=== PATIENT | male | born 1950 | race Caucasian/White ===

== ENCOUNTER 2016-08-20 09:49 | Day surgery (SDC) | payer MEDICARE, OTHER ==
[~2016-08-20 09:49] MED LIST: BUPIVACAINE HCL 0.75% INJ/PF (7.5 MG/1 ML) 10 ML SDV OS PRN; LIDOCAINE 4% INJ/PF (40 MG/ML) 5 ML AMPUL OS PRN
[2016-08-20] MEDS: CYCLOPENTOLATE 0.2%/PHENYLEPHRINE 1% OPH SOLN 2 ML OS PRN ×3 (10:14→10:35)
[2016-08-20] MEDS: TROPICAMIDE 1% OPH SOLN 3 ML OS PRN ×3 (10:15→10:36)
[2016-08-20] MEDS: TETRACAINE HCL 0.5% OPH SOLN 0.6 ML DROPERETTE OS PRN ×2 (10:16→10:36)
[2016-08-20] MEDS: BESIFLOXACIN HCL 0.6% OPH SUSP 5 ML BOTTLE OS PRN ×4 (10:16→11:10)
[2016-08-20] MEDS ORDERED: MIDAZOLAM 2 MG/2 ML INJ ONE (10:19)
[2016-08-20] MEDS ORDERED: FENTANYL CITRATE INJ/PF 100 MCG/2 ML AMPUL ONE (10:19)
[2016-08-20] MEDS ORDERED: EPINEPHRINE INJ/PF 1 MG/1 ML AMPULE ONE (10:23)
[2016-08-20] MEDS ORDERED: CHONDR SU A NA/HYALUR INTRAOC KIT (SURGICARE) ONE (10:23)
[2016-08-20] MEDS ORDERED: PHENYLEPHRINE/KETOROLAC 1%-0.3% 4 ML VIAL ONE (10:24)
[2016-08-20] MEDS ORDERED: LIDOCAINE 1% INJ-PF (10 MG/ML) 30 ML SDV ONE (10:24)
--- NOTE | 2016-08-20 11:33 | [facility] OPERATIVE REPORT E ---
[facility] Operative Report NAME: SHONDA NAVA AGE: 66Y DATE OF SURGERY: 08/20/2016 ROOM: PREOPERATIVE DIAGNOSES: 1. Cataract, left eye. 2. Astigmatism, left eye. POSTOPERATIVE DIAGNOSES: 1. Cataract, left eye. 2. Astigmatism, left eye. PROCEDURE PERFORMED: Phacoemulsification with toric intraocular lens implant, left eye. SURGEON: BREANNA GUTHRIE M.D. ANESTHESIA: Topical with MAC. INDICATIONS FOR SURGERY: Difficulty reading road signs and driving at night. Best corrected visual acuity 20/60. DESCRIPTION OF PROCEDURE: The patient was brought to the Operating Room and placed on the operative table. Patient was placed in the seated position and the 0, 270, and 180 degree axis of the eye was marked. Following tetracaine drops, topical anesthesia was administered. This consisted of instrument wipe pledgets soaked in a solution of 4% Xylocaine mixed with 0.75% Marcaine in a 1:2 ratio. A 2 x 1 cm pledget was placed in the superior fornix. A 1 x 1 cm pledget was placed in the inferior fornix. The eye was patched shut for 5 minutes. The patch was removed. The eye was sterilely prepped and draped in the usual manner. Lid speculum was placed in the eye. The pledgets were removed and 4-0 black silk sutures were placed around the superior and the inferior rectus muscles to be used as traction. A conjunctival peritomy was made at the 10 o'clock position. Hemostasis was obtained with bipolar cautery. A posterior limbal groove was created using a crescent knife and dissected anteriorly towards the cornea. A sharp point blade was used to create a paracentesis site at the 2 o'clock position. A 2.4-mm keratome was used to enter the anterior chamber through the groove. Viscoelastic was injected into the anterior chamber. An anterior capsulotomy was performed using Utrata forceps in a capsulorrhexis fashion. Hydrodissection and hydrodelineation were performed. Phacoemulsification was performed in bhaioo-fol-oekukka technique. A total of 22 seconds phaco time was used. Following this, the I/A unit was used to remove residual cortex. Viscoelastic was injected into the capsular bag. The 85-degree axis was marked on the eye using the previously marked sites as reference. Intraocular lens model [id number], serial number [id number], was placed in the capsular bag. The I/A unit was used to remove residual viscoelastic. The lens was placed at the final position of 85 degrees. The wound was seen to be watertight under high and low pressure, and no sutures were placed. The intraocular lens was well centered. The pressure was adjusted in the eye to normal pressure. The 4-0 black silk sutures and lid speculum were removed. The eye was shielded after Besivance drops were placed. The patient tolerated the procedure well and was sent to the Recovery Room in good condition. DICTATING PHYSICIAN: BREANNA GUTHRIE M.D. [id number] PHY#: [id number] ID: [id number] JOB#: [id number] ACCT: [id number] cc:BREANNA GUTHRIE M.D. > MTDD
--- NOTE | 2016-08-20 11:38 | [facility] DISCHARGE SUMMARY E ---
[facility] Discharge Summary NAME: SHONDA NAVA AGE: 66Y ADMITTED: 08/20/2016 DISCHARGED: HOSPITAL COURSE: The patient is a 66-year-old gentleman who underwent uneventful cataract extraction with toric intraocular lens implant, left eye, on 08/20/2016. He will be discharged to home. He was instructed to resume preoperative medications, to take Tylenol as needed for discomfort, to keep his eye shielded, to use Besivance and Durezol at 3:00 p.m. and 8:00 p.m., and to follow up in my office in 1 day. DICTATING PHYSICIAN: BREANNA GUTHRIE M.D. [id number] PHY#: [id number] ID: [id number] JOB#: [id number] ACCT: [id number] cc:BREANNA GUTHRIE M.D. >
== END 2016-08-20 11:54 | disposition home or self-care (01) ==
LOC: SC 09:49
PROVIDERS: ATTEND Ophthalmology
PROC: 08RK3JZ Replacement of Left Lens with Synthetic Substitute, Percutaneous Approach (ICD-10-PCS; principal; 2016-08-20 11:00)
DX: H25.13 Age-related nuclear cataract, bilateral (principal); H57.03 Miosis; H04.123 Dry eye syndrome of bilateral lacrimal glands; H53.021 Refractive amblyopia, right eye; H01.002 Unspecified blepharitis right lower eyelid; H01.005 Unspecified blepharitis left lower eyelid; H31.093 Other chorioretinal scars, bilateral; I10 Essential (primary) hypertension; E78.00 Pure hypercholesterolemia, unspecified; I25.2 Old myocardial infarction; Z87.891 Personal history of nicotine dependence; Z88.2 Allergy status to sulfonamides; Z79.82 Long term (current) use of aspirin; Z79.899 Other long term (current) drug therapy; K21.9 Gastro-esophageal reflux disease without esophagitis
CPT/HCPCS: 66984; V2787; J2250; J3490 ×5; J0171; C9447; 142; J3010

== ENCOUNTER 2016-09-17 10:07 | Day surgery (SDC) | payer MEDICARE, OTHER ==
[~2016-09-17 10:07] MED LIST changes: -BUPIVACAINE HCL 0.75% INJ/PF (7.5 MG/1 ML) 10 ML SDV OS PRN; +KETOROLAC TROMETHAMINE 0.45% 4 DROP/0.4 ML DROPERETTE OD PRN; -LIDOCAINE 4% INJ/PF (40 MG/ML) 5 ML AMPUL OS PRN
[2016-09-17] MEDS ORDERED: PHENYLEPHRINE/KETOROLAC 1%-0.3% 4 ML VIAL ONE (10:15)
[2016-09-17] MEDS: BESIFLOXACIN HCL 0.6% OPH SUSP 5 ML BOTTLE OD PRN ×4 (10:39→12:16)
[2016-09-17] MEDS: CYCLOPENTOLATE 0.2%/PHENYLEPHRINE 1% OPH SOLN 2 ML OD PRN ×3 (10:39→10:59)
[2016-09-17] MEDS: TROPICAMIDE 1% OPH SOLN 3 ML OD PRN ×3 (10:39→10:59)
[2016-09-17] MEDS: TETRACAINE HCL 0.5% OPH SOLN 0.6 ML DROPERETTE OD PRN ×2 (10:40→11:00)
[2016-09-17] MEDS ORDERED: MIDAZOLAM 2 MG/2 ML INJ ONE (11:11)
[2016-09-17] MEDS ORDERED: FENTANYL CITRATE INJ/PF 100 MCG/2 ML AMPUL ONE (11:12)
[2016-09-17] MEDS: LIDOCAINE 4% INJ/PF (40 MG/ML) 5 ML AMPUL OD PRN ×2 (11:44)
[2016-09-17] MEDS: BUPIVACAINE HCL 0.75% INJ/PF (7.5 MG/1 ML) 10 ML SDV OD PRN ×2 (11:44)
[2016-09-17] MEDS: EPINEPHRINE INJ/PF 1 MG/1 ML AMPULE ONE ×2 (11:54)
[2016-09-17] MEDS: CHONDR SU A NA/HYALUR INTRAOC KIT (SURGICARE) ONE ×2 (12:02)
--- NOTE | 2016-09-17 13:48 | [facility] OPERATIVE REPORT E ---
[facility] Operative Report NAME: David Burdick AGE: 70Y DATE OF SURGERY: 09/17/2016 ROOM: PREOPERATIVE DIAGNOSIS: Cataract, right eye. POSTOPERATIVE DIAGNOSIS: Cataract, right eye. PROCEDURE PERFORMED: Phacoemulsification with posterior chamber intraocular lens, right eye. SURGEON: BREANNA GUTHRIE M.D. ANESTHESIA: Topical with MAC. INDICATIONS FOR SURGERY: Anisometropia after cataract surgery on the left eye, difficulty reading small print and road signs. Best corrected visual acuity 20/100. DESCRIPTION OF PROCEDURE: The patient was brought to the Operating Room and placed on the operative table. Following tetracaine drops, topical anesthesia was administered. This consisted of instrument wipe pledgets soaked in a solution of 4% Xylocaine mixed with 0.75% Marcaine in a 1:2 ratio. A 2 x 1 cm pledget was placed in the superior fornix. A 1 x 1 cm pledget was placed in the inferior fornix. The eye was patched shut for 5 minutes. The patch was removed. The eye was sterilely prepped and draped in the usual manner. Lid speculum was placed in the eye. The pledgets were removed. 4-0 black silk sutures were placed around the superior and the inferior rectus muscles to be used as traction. A conjunctival peritomy was made at the 10 o'clock position. Hemostasis was obtained with bipolar cautery. A posterior limbal groove was created using a crescent knife and dissected anteriorly towards the cornea. A sharp point blade was used to create a paracentesis site at the 2 o'clock position. A 2.4 mm keratome was used to enter the anterior chamber through the groove. Viscoelastic was injected into the anterior chamber. An anterior capsulotomy was performed using Utrata forceps in a capsulorrhexis fashion. Hydrodissection and hydrodelineation were performed. Phacoemulsification was performed in alnswn-ofr-ncqrpou technique. A total of 51 seconds phaco time was used. Following this, the I/A unit was used to remove residual cortex. Viscoelastic was injected into the capsular bag. Intraocular lens model [id number], 30.0 diopters, serial number [id number] was placed in the capsular bag. The I/A unit was used to remove residual viscoelastic. The wound was seen to be watertight under high and low pressure, and no sutures were placed. The intraocular lens was well centered. The pressure was adjusted in the eye to normal pressure. The 4-0 black silk sutures and lid speculum were removed. The eye was shielded after Besivance drops were placed. The patient tolerated the procedure well and was sent to the Recovery Room in good condition. Gonioscopy was performed at the end of the surgery. DICTATING PHYSICIAN: BREANNA GUTHRIE M.D. [id number] PHY#: [id number] ID: [id number] JOB#: [id number] ACCT: [id number] cc:BREANNA GUTHRIE M.D. > MTDD
--- NOTE | 2016-09-17 13:50 | [facility] DISCHARGE SUMMARY E ---
[facility] Discharge Summary NAME: David Burdick AGE: 70Y ADMITTED: 09/17/2016 DISCHARGED: 09/17/2016 HOSPITAL COURSE: The patient is a 66-year-old gentleman who underwent uneventful cataract extraction with intraocular lens implant, right eye, on 09/17/2016. He will be discharged to home. He is instructed to resume preoperative medications, take Tylenol as needed for discomfort, to keep his eye shielded, to use Besivance and Durezol at 3 p.m. and 8 p.m., and to follow up in my office in 1 day. DICTATING PHYSICIAN: BREANNA GUTHRIE M.D. [id number] PHY#: [id number] ID: [id number] JOB#: [id number] ACCT: [id number] cc:BREANNA GUTHRIE M.D. > MTDD
== END 2016-09-17 13:02 | disposition home or self-care (01) ==
LOC: SC 10:07
PROVIDERS: ATTEND Ophthalmology
PROC: 08RJ3JZ Replacement of Right Lens with Synthetic Substitute, Percutaneous Approach (ICD-10-PCS; principal; 2016-09-17 11:30)
DX: H25.11 Age-related nuclear cataract, right eye (principal); H57.03 Miosis; Z96.1 Presence of intraocular lens; I10 Essential (primary) hypertension; K21.9 Gastro-esophageal reflux disease without esophagitis; Z79.899 Other long term (current) drug therapy; Z88.2 Allergy status to sulfonamides; Z88.6 Allergy status to analgesic agent; Z79.82 Long term (current) use of aspirin; Z87.891 Personal history of nicotine dependence
CPT/HCPCS: 66984; V2632; J2250; J3490 ×3; J0171; J3010; A9270; C9447; 142

== ENCOUNTER 2017-10-02 08:17 | Day surgery (SDC) | payer MEDICARE, OTHER ==
[2017-10-02] MEDS ORDERED: ONDANSETRON HCL INJ/PF 4 MG/2 ML SDV ONE (08:41)
[2017-10-02] MEDS ORDERED: GLYCOPYRROLATE INJ 0.4 MG/2 ML VIAL ONE (08:41)
[2017-10-02] MEDS ORDERED: NALOXONE HCL INJ/PF 0.4 MG/1 ML SDV ONE (08:41)
[2017-10-02] MEDS ORDERED: EPINEPHRINE INJ 1 MG/10 ML DISP.SYRIN ONE (08:42)
[2017-10-02] MEDS ORDERED: GLUCAGON,HUMAN RECOMB 1 MG INJ ONE (08:42)
[2017-10-02] MEDS ORDERED: MIDAZOLAM 2 MG/2 ML INJ ONE (08:42)
[2017-10-02] MEDS ORDERED: FLUMAZENIL INJ 0.5 MG/5 ML VIAL ONE (08:42)
--- NOTE | 2017-10-02 09:26 | EKG REPORT ---
SEVERITY:- ABNORMAL ECG - SINUS RHYTHM MULTIPLE VENTRICULAR PREMATURE COMPLEXES LOW VOLTAGE IN FRONTAL LEADS BORDERLINE R WAVE PROGRESSION, ANTERIOR LEADS : Confirmed by: Jose Vargas 02-Oct-2017 09:26:00
[2017-10-02] MEDS: MIDAZOLAM 2 MG/2 ML INJ ONE ×3 (09:28→09:37)
[2017-10-02] MEDS: FENTANYL CITRATE INJ/PF 100 MCG/2 ML AMPUL ONE ×2 (09:30→09:35)
--- NOTE | 2017-10-02 10:15 | Discharge Summary ---
Discharge Summary (SDC) - Discharge Final Diagnosis: Diverticulosis of the colon Date of Surgery: 10/02/17 Discharge Date: 10/02/17 Condition: Good Treatment or Instructions: [place] [id number] POST ENDOSCOPY DISCHARGE INSTRUCTIONS 1. Diet: Start clear liquids that a regular diet as tolerated. 2. Resume all preoperative medications. All oral anticoagulants and aspirins can be resumed 24 hours after procedure. 3. If a polypectomy was performed some bleeding per rectum may occur. This should stop within 3 days. If not, please contact the office. 4. If you had a colonoscopy you may experience some bloating and delayed return of normal bowel function for several days, your regular bowel movement pattern should resume within a week. 5. Please contact [facility] at to make an appointment with Dr. Diaz for 1 to 3 weeks following procedure. 6. If you have any questions or concerns regarding your care,treatment plan or follow up, please contact our office. 7. Per clinical guidelines we recommend you undergo a repeat colonoscopy in 10 years. Referrals: SKIP VAUGHAN MD [Primary Care Provider] - Discharge Diet: As Tolerated Discharge Activity: Activity As Tolerated Home Care Assistance: None Needed Report the Following to Your Physician Immediately: Shortness of Breath, Increase in Pain, Fever over 101 Degrees
--- NOTE | 2017-10-02 10:17 | Operative Report ---
Operative Report DATE OF SURGERY: 10/02/17 PREOPERATIVE DIAGNOSIS: 1. Need for screening colonoscopy POSTOPERATIVE DIAGNOSIS: 1. Normal colonoscopy. 2. Scattered diverticulosis OPERATION: Total colonoscopy to cecum photodocumentation SURGEON: GABRIELLE QUEZADA ANESTHESIA: Moderate Sedation TISSUE REMOVED OR ALTERED: None COMPLICATIONS: None ESTIMATED BLOOD LOSS: Scant INTRAOPERATIVE FINDINGS: See below PROCEDURE: Obtaining informed consent the patient was taken from the preoperative holding area to the main endoscopy suite where monitoring devices were attached to the patient. Plan and surgical timeout were conducted The patient was placed in the left lateral decubitus position with knees to chest. A perianal examination was performed. There was no visible or palpable anorectal pathology. Sphincter tone was felt to be normal. The flexible adult colonoscope was advanced through the anal rectal canal, all the way to the cecum. Visualization of the cecum was achieved and the ileocecal valve, the appendiceal orifice and transillumination of the anterior abdominal wall. This was an excellent study on a reasonably well-prepped bowel. There is a moderate amount of residual green and fecal matter which required a moderate amount of the irrigation for removal. The colonoscope was withdrawn slowly and methodically checked and the mucosa carefully. There was no evidence of tumor, stricture, bleeding or polyp. There were scattered diverticulosis of the sigmoid colon . The scope was slowly withdrawn through the anal rectal canal. Complete visualization of the rectum was achieved with photodocumentation. The scope was withdrawn to the patient's anus. The patient tolerated the procedure well and was taken to the recovery area in stable condition. Per screening guidelines, patient be appropriate candidate for follow-up colonoscopy in 10 years, or sooner if symptoms develop
[2017-10-02 11:11] VITALS: BP 115/58
== END 2017-10-02 11:16 | disposition home or self-care (01) ==
LOC: END 08:17
PROVIDERS: ATTEND Surgery
DX: Z12.11 Encounter for screening for malignant neoplasm of colon (principal); K57.30 Diverticulosis of large intestine without perforation or abscess without bleeding; E78.00 Pure hypercholesterolemia, unspecified; I10 Essential (primary) hypertension; I25.10 Atherosclerotic heart disease of native coronary artery without angina pectoris; Q60.0 Renal agenesis, unilateral; Z87.891 Personal history of nicotine dependence; Z79.82 Long term (current) use of aspirin; Z79.899 Other long term (current) drug therapy
CPT/HCPCS: 93005; 93010; G0121; J2250; J3010; 45378; J0171; J1610; J2310; J2405; J3490